=== PATIENT | female | born 1945 | race Caucasian/White ===

== ENCOUNTER → 2016-09-27 | Outpatient (CLI) | payer MEDICARE ==
[~2016-09-27] MED LIST: 'XANAX0.25 MG PO; ACCUNEB 0.1.25 MG/3 INH; BENICAR HCT 12.1 TAB PO; CRESTOR5 MG PO; DOXYCYCLINE100 MG PO; FLONASE 0.05% 121 EA NAS; PAROXETINE10 MG PO; PREDNISONE10 MG PO; SYNTHROID,LEVO50 MCG PO
[2016-09-27 13:46] LABS: BASO # 0.1 10*3/uL (0.0-0.1); BASO % 0.6 % (0.0-1.0); EOS # 0.3 10*3/uL (0.0-0.4); EOS % 3.3 % (1.0-4.0); HEMATOCRIT 40.3 % (37.0-47.0); HEMOGLOBIN 13.6 g/dl (12.0-16.0); LYMPH # 2.9 10*3/uL (1.3-4.4); LYMPH % 28.3 % (27.0-41.0); MEAN CELL VOLUME 93.7 fl (81.0-99.0); MEAN CORPUSCULAR HGB 31.6 pg (27.0-31.0); MEAN CORPUSCULAR HGB CONC 33.7 g/dl (33.0-37.0); MEAN PLATELET VOLUME 10.2 fl (9.6-12.3); MONO # 0.9 10*3/uL (0.1-1.0); MONO % 8.8 % (3.0-9.0); NEUT % 58.6 % (47.0-73.0); PLATELET COUNT AUTOMATED 218 10*3/uL (130-400); RED CELL DISTRI WIDTH 12.8 % (0-14.5); WHITE BLOOD COUNT 10.2 10*3/uL (4.8-10.8)
== END ==
LOC: LAB 13:30
PROVIDERS: Nurse Practitioner Family
DX: J18.9 Pneumonia, unspecified organism (principal)

== ENCOUNTER → 2016-10-16 | Outpatient (CLI) | payer MEDICARE | END | disposition home or self-care (01) | LOC: CT 14:32 | DX: R05 Cough (principal); R06.89 Other abnormalities of breathing; Z85.89 Personal history of malignant neoplasm of other organs and systems ==

== ENCOUNTER → 2018-04-22 | Outpatient (CLI) | payer MEDICARE ==
[~2018-04-22] MED LIST changes: +KETOROLAC10 MG PO
== END | disposition home or self-care (01) ==
LOC: RAD 10:54
DX: H92.02 Otalgia, left ear (principal); R68.84 Jaw pain

== ENCOUNTER 2018-05-08 11:10 | Emergency (ER) | payer MEDICARE ==
[~2018-05-08] VITALS: Ht 162.5 cm; Wt 76.7 kg
--- NOTE | ~2018-05-08 | EKG ---
[place], [place] ELECTROCARDIOGRAM REPORT NAME: UZIEL VEGA UNIT #: [id number] ROOM: DOCTOR: EPIPHANY DRAFT REPORT BIRTHDATE: [birth year] [facility] Test Date: 2018-05-08 Test Time: 11:48:59 Pat Name: UZIEL VEGA Department: Room: Gender: F Auxiliary Engineer: 16 : 1945 Requested By: LISBETH RONDON PA-C Order Number: [id number] Reading MD: Modesto Barboza MD Measurements Intervals [place] Rate: 44 P: 35 TX: 183 QRS: 17 QRSD: 93 T: 39 QT: 429 QTc: 367 Interpretive Statements Sinus bradycardia Borderline low voltage, extremity leads Electronically Signed On 05-09-2018 13:08:19 PST by Modesto Barboza MD CM:EKGRPT:ELECTROCARDIOGRAM REPORT [id number] 1308 LISBETH RONDON PA-C EPIPHANY DRAFT REPORT LISBETH RONDON PA-C
[~2018-05-08 11:10] MED LIST changes: -KETOROLAC10 MG PO
[2018-05-08 12:02] LABS: BASO % 0.7 % (0.0-1.0); EOS # 0.2 10*3/uL (0.0-0.4); EOS % 4.2 % (1.0-4.0); HEMATOCRIT 37.8 % (37.0-47.0); HEMOGLOBIN 12.9 g/dl (12.0-16.0); LYMPH # 2.5 10*3/uL (1.3-4.4); LYMPH % 45.9 % (27.0-41.0); MEAN CELL VOLUME 97.4 fl (81.0-99.0); MEAN CORPUSCULAR HGB 33.2 pg (27.0-31.0); MEAN CORPUSCULAR HGB CONC 34.1 g/dl (33.0-37.0); MEAN PLATELET VOLUME 10.2 fl (9.6-12.3); MONO # 0.8 10*3/uL (0.1-1.0); MONO % 13.8 % (3.0-9.0); NEUT # 1.9 10*3/uL (2.3-7.9); NEUT % 35.2 % (47.0-73.0); PLATELET COUNT AUTOMATED 191 10*3/uL (130-400); RED BLOOD COUNT 3.88 10*6/uL (4.10-5.10); RED CELL DISTRI WIDTH 12.2 % (0-14.5); WHITE BLOOD COUNT 5.4 10*3/uL (4.8-10.8)
[2018-05-08 12:19] LABS: ALBUMIN 3.9 gm/dl (3.1-4.5); ALKALINE PHOSPHATASE 64 U/L (45-117); BUN 23 mg/dl (7-24); CHLORIDE 103 mmol/L (98-107); CREATININE 0.94 mg/dL (0.55-1.02); POTASSIUM 4.8 mmol/L (3.5-5.1); SGOT/AST 19 IU/L (3-35); SGPT/ALT 26 U/L (12-78); SODIUM 138 mmol/L (136-145); TOTAL PROTEIN 6.9 gm/dL (6.4-8.2); TROPONIN I < 0.015 ng/ml (<0.045)
[2018-05-08] MEDS ORDERED: KETOROLAC10 MG PO (15:04)
== END 2018-05-08 14:58 | disposition home or self-care (01) ==
LOC: ED 11:10
PROVIDERS: Physician Assistant
DX: R51 Headache (principal); H53.8 Other visual disturbances; R79.1 Abnormal coagulation profile; Z88.0 Allergy status to penicillin; Z91.018 Allergy to other foods; Z88.6 Allergy status to analgesic agent

== ENCOUNTER → 2018-05-25 | Outpatient (CLI) | payer MEDICARE ==
[~2018-05-25] MED LIST changes: +KETOROLAC10 MG PO
--- NOTE | ~2018-05-25 | HM ---
[place], [place] HOLTER MONITOR REPORT NAME: UZIEL VEGA UNIT #: [id number] ROOM: DOCTOR: JACQUELYN RAMSEY MD BIRTHDATE: [birth year] DOS: 05/25/2018 48-HOUR HOLTER MONITOR The patient remained in sinus rhythm throughout the entire period. Minimum heart rate is 42, maximum is 112, average of 61 beats per minute. The patient remained in sinus rhythm throughout the entire period. No significant ventricular or supraventricular dysrhythmia except for isolated premature ventricular contraction. The patient had an episode of sinus tachycardia. No other ventricular dysrhythmia. No supraventricular dysrhythmia. FINAL IMPRESSION: Sinus rhythm with few episodes of sinus tachycardia, isolated premature ventricular contractions. No ventricular or supraventricular arrhythmia. No significant pauses. JACQUELYN RAMSEY MD CM:HOLTER:HOLTER MONITOR REPORT 1030 T: IVAN RAMSEY MD
== END ==
LOC: US 10:07
DX: I65.23 Occlusion and stenosis of bilateral carotid arteries (principal); I10 Essential (primary) hypertension; E78.2 Mixed hyperlipidemia; R51 Headache; R00.1 Bradycardia, unspecified

== ENCOUNTER 2018-08-13 11:16 | Inpatient (IN) | payer MEDICARE ==
[~2018-08-13] VITALS: Ht 162.5 cm; Wt 77.3 kg
--- NOTE | ~2018-08-13 | PR ---
[place], [place] PROGRESS NOTE NAME: UZIEL VEGA UNIT #: [id number] ROOM: 522 DOCTOR: RADHA SAMAYOA MD BIRTHDATE: [birth year] DOS: 08/18/2018 PULMONARY PROGRESS NOTE SUBJECTIVE: The patient's bronchoscopy was done yesterday. The patient is with decrease and reduction in symptoms of coughing and wheezing reported. Cough has been noted at this time mild to moderate and productive. There were symptoms of wheezing reported. There were no symptoms of chest pain reported by the patient. OBJECTIVE: VITAL SIGNS: Which have been recorded showed normal temperature, respiratory rate 20, heart rate 64, blood pressure 115/68. Pulse ox saturation on room air was 95% saturation. HEENT: No acute change. CARDIOVASCULAR: S1 and S2 audible. LUNGS: The patient was noted without any crackles. Occasional wheezing was present. ABDOMEN: Soft, nontender. Bowel sounds present. EXTREMITIES: No acute change. LABORATORY DATA: Culture of the bronchial washing preliminary was noted as normal tobias. IMPRESSION: 1. The patient is status post bronchoscopy with removal of significant mucous impaction from major airway with improvement in the respiratory symptoms noted as expected post-bronchoscopy. 2. Resolving acute asthmatic bronchitis. PLAN OF MANAGEMENT: Discharge planning for the patient could be started whenever is necessary. Decrease Solu-Medrol to 40 mg daily. Tapering dose of antibiotic will be ordered post-discharge. The patient does not wish to be discharged today and would like to wait another 24 hours prior to discharge in the morning. The assessment and management of discharge planning was discussed with the primary care attending of this patient for today. [place], [place] PROGRESS NOTE NAME: UZIEL VEGA UNIT #: [id number] ROOM: 522 DOCTOR: RADHA SAMAYOA MD BIRTHDATE: [birth year] RADHA WEBER MD CM:PNTRANS [id number] [id number] RADHA DOWNEY MD 08/18/18 2244 interface
--- NOTE | ~2018-08-13 | PR ---
[place], [place] PROGRESS NOTE NAME: UZIEL VEGA UNIT #: [id number] ROOM: 522 DOCTOR: TIA DOWNEY MD,RADHA BIRTHDATE: [birth year] DOS: 08/16/2018 SUBJECTIVE: The patient continued to have cough, which has been noted nonresolving. She denies symptoms of fever or chills. Denies symptoms of hemoptysis. Denies symptoms of nausea, vomiting, diarrhea or any abdominal pain. PHYSICAL EXAMINATION: VITAL SIGNS: Normal temperature, respiratory rate 18, heart rate of 70, blood pressure 140/52. The pulse oxygen saturation the recorded as 94% saturation on room air at rest. HEENT: Showed no acute change. CARDIOVASCULAR: S1, S2 audible. No added sounds. LUNGS: Moderate decreased breath sounds, expiratory wheezing, no crackles. ABDOMEN: Soft, nontender, bowel sounds present. EXTREMITIES: No new change. LABORATORY DATA: The patient's CBC, WBC count of 16,000. The CMP of the patient with normal BUN and creatinine. Glucose 143. Culture of the sputum was pending. The Gram stain was pending as well from yesterday. IMPRESSION: The patient who has been currently treated for acute asthmatic bronchitis with persistent cough, impaction of the mucus. The symptoms has been ongoing and present for several weeks and not resolving. PLAN OF MANAGEMENT: Proceed with the fibrobronchoscopy for tomorrow to clear the mucus impaction of major airways. Continue the other therapy with corticosteroids, bronchodilators, oxygen supplementation, mucolytics and a flutter valve in the meantime. RADHA WEBER MD CM:PNTRANS 1234 [id number] RADHA DOWNEY MD 08/16/18 1449 interface
--- NOTE | ~2018-08-13 | EKG ---
[place], [place] ELECTROCARDIOGRAM REPORT NAME: UZIEL VEGA UNIT #: [id number] ROOM: 522 DOCTOR: YARA DRAFT REPORT BIRTHDATE: [birth year] [facility] Test Date: 2018-08-16 Test Time: 14:35:39 Pat Name: UZIEL VEGA Department: Room: 522 1 Gender: F Sports Editor: 16 : 1945 Requested By: RADHA DOWNEY Order Number: [id number] Reading MD: Radha Mar MD Measurements Intervals [place] Rate: 57 P: 47 [place]: 154 QRS: 7 QRSD: 92 T: 40 QT: 417 QTc: 406 Interpretive Statements Sinus rhythm Compared to ECG 05/08/2018 11:48:59 Sinus bradycardia no longer present Electronically Signed On 08-17-2018 6:18:39 PST by Radha Mar MD CM:EKGRPT:ELECTROCARDIOGRAM REPORT 1435 0618 RADHA LIVINGSTON DRAFT REPORT RADHA DOWNEY MD
--- NOTE | ~2018-08-13 | PROC NOTE ---
[place], [place] PROCEDURE NOTE NAME: UZIEL VEGA UNIT #: [id number] ROOM: 522 DOCTOR: TIA DOWNEY MD,RADHA BIRTHDATE: [birth year] DOS: 08/17/2018 PREOPERATIVE DIAGNOSES: Nonresolving cough with maximum medical therapy with asthmatic bronchitis, acute exacerbation. POSTOPERATIVE DIAGNOSES: Removal of the mucus impaction endobronchial tree bilaterally, which are noted moderate to large with evidence of acute tracheobronchitis, friable mucosa. There were no endobronchial obstructive lesions. PROCEDURE DESCRIPTION: Informed consent obtained with the patient. She was brought to the OR and placed in supine position. Conscious sedation administered by Anesthesia Department. After that, airway introduced into the mouth. Bronchoscope advanced to the airway into laryngeal area. Epiglottis and vocal cord seen. Vocal moved symmetrically with movements. The bronchoscope has advanced through the vocal cord. Tracheal lumen noted with moderate amount of thick mucoid secretion tracking down to the anahy level. Large plugs of the mucus was present in the right upper, right middle, right lower, left upper, lingular lower lobe bronchi. Significant friability of the mucosa of the trachea and the endobronchial tree was noted. Secretions suctioned clear with normal saline wash, sent for cultures. Procedure was tolerated without complications. Postoperative findings were discussed with the patient's family members. The dose of steroids will be decreased to 40 mg Solu-Medrol b.i.d. RADHA WEBER MD CM:PROCNOTE:PROCEDURE NOTE 0931 1510 RADHA DOWNEY MD
--- NOTE | ~2018-08-13 | PR ---
[place], [place] PROGRESS NOTE NAME: UZIEL VEGA UNIT #: [id number] ROOM: 522 DOCTOR: TIA DOWNEY MD,RADHA BIRTHDATE: [birth year] DOS: 08/19/2018 SUBJECTIVE: The patient continued to do well with current medical management. The respiratory symptoms have been resolving. She has been ambulating. Denies symptoms of chest pain, fever or chills or hemoptysis. OBJECTIVE: VITAL SIGNS: Normal temperature, respiratory rate 17, heart rate 58, blood pressure 148/80. Pulse oxygen saturation recorded room air 98% saturation. HEENT: Examination shows head was atraumatic. Eyes nonicterus. NECK: Supple. CARDIOVASCULAR: S1, S2 is audible. LUNGS: The patient was noted without any wheezing or crackles. ABDOMEN: Soft, nontender. Bowel sounds present. EXTREMITIES: The patient noted without any acute edema. LABORATORY DATA: Culture of the bronchial washing noted as a normal tobias. IMPRESSION: The patient with resolving exacerbation of asthmatic bronchitis, cough, improved markedly at this time, the patient was noted asymptomatic. PLAN OF MANAGEMENT: Discharge planning for the patient today with tapering prednisone and oral antibiotics. Other supportive therapy, plan of management, care plan as previously. RADHA WEBER MD CM:PNTRANS 1202 1310 RADHA DOWNEY MD 08/19/18 1311 interface
--- NOTE | ~2018-08-13 | PR ---
[place], [place] PROGRESS NOTE NAME: UZIEL VEGA UNIT #: [id number] ROOM: 522 DOCTOR: RADHA SAMAYOA MD BIRTHDATE: [birth year] DOS: 08/17/2018 SUBJECTIVE: The patient is n.p.o. past midnight for bronchoscopy, continuous with severe nonproductive cough with wheezing and shortness of breath. Denies symptoms of fever or chills. Denies symptoms of hemoptysis. The patient denies headache, diplopia, nausea, vomiting, or diarrhea. Remaining systems were reviewed. They were noted all negative. PHYSICAL EXAMINATION: VITAL SIGNS: Normal temperature, respiratory rate 16, heart rate 72, blood pressure 122/72. Pulse oxygen saturation recorded as 94% at rest on room air. HEENT: No acute change. NECK: Supple. CARDIOVASCULAR: S1, S2 audible. LUNGS: Noted with moderate decreased breath sounds, expiratory wheezing, no crackles. ABDOMEN: Soft, flat, nontender, bowel sounds present. EXTREMITIES: Without edema. MUSCULOSKELETAL: Without acute deformities. CENTRAL NERVOUS SYSTEM: Cranial nerves 2-12 intact. LABORATORY DATA: Culture of the sputum noted normal tobias from 2 days ago. CBC this morning; WBC count 15.5, hemoglobin and hematocrit normal, platelet count normal. PT/PTT normal. CMP of the patient this morning, normal BUN and creatinine, glucose mildly elevated at 162. IMPRESSION: 1. The patient with ongoing acute asthmatic bronchitis. The patient persistent nonresolving symptoms of cough with wheezing. Continue maximum medical management therapy. 2. Leukocytosis secondary to current infection and steroids. 3. Mild hyperglycemia secondary to corticosteroids. PLAN OF MANAGEMENT: No changes in the plan of care at this time. Proceed with the fiberoptic bronchoscopy. Continue corticosteroids, bronchodilator therapy, plan of management. After the bronchoscopy changes in the treatment will be ordered. Management of hyperglycemia and if her blood glucose noted more than 200. [place], [place] PROGRESS NOTE NAME: UZIEL VEGA UNIT #: [id number] ROOM: 522 DOCTOR: RADHA SAMAYOA MD BIRTHDATE: [birth year] RADHA WEBER MD CM:PNTRANS 0929 21 RADHA DOWNEY MD 08/17/18 162 interface
--- NOTE | ~2018-08-13 | CON ---
[place], [place] REPORT OF CONSULTATION NAME: UZIEL VEGA UNIT #: [id number] ROOM: 522 DOCTOR: RADHA SAMAYOA MD BIRTHDATE: [birth year] DOS: 08/15/2018 PULMONARY CONSULTATION, EVALUATION AND MANAGEMENT CONSULTATION REQUESTED BY: Hospitalist service. REASON FOR CONSULTATION: For assessment of the current abnormal respiratory symptoms. HISTORY OF PRESENT ILLNESS: This is a 72-year-old white female patient who has been hospitalized from 08/13/2018. She presented to the Emergency Room with failed outpatient treatment. The patient reported acute respiratory symptom and stated that she has been diagnosed with influenza pneumonia by the primary care physician. She has been prescribed the prednisone, bronchodilators, and the Tamiflu. She has been taking the medication for the first couple of days. Stated reduction of the respiratory symptom, but after that she has been noted worsening of the respiratory symptom. She was seen by the primary care physician on this and was advised for hospitalization. She has been admitted to the hospital for further care at this time. She still noted significant harsh nonproductive cough. Chest congestion noted as well with wheezing. Denies symptoms of hemoptysis. Denies any chest pain at this time. REVIEW OF SYSTEMS: CONSTITUTIONAL SYMPTOMS: Fatigue and tiredness reported without any symptoms of fever or chills. EYES: Denies any burning, redness, or tenderness. EARS, NOSE, THROAT SYMPTOMS: Denies sore throat, hoarseness, otalgia, postnasal drainage, or epistaxis. CARDIOVASCULAR: Denies angina pain, edema, and pain of the lower extremities. GASTROINTESTINAL: Dysphagia, nausea, vomiting, diarrhea, abdominal pain, hematemesis, melena, or hematochezia. GENITOURINARY: No dysuria, suprapubic pain, or hematuria. MUSCULOSKELETAL: No acute joint pain, redness, or tenderness. CENTRAL NERVOUS SYSTEM: No dizziness, headache, diplopia, syncopal episode with general weakness reported with current illness. Remaining systems were reviewed, they were noted all negative. PAST MEDICAL HISTORY: 1. Essential hypertension. 2. Hypothyroidism. 3. Hyperlipidemia. 4. Anxiety disorder. 5. Hypothyroidism. 6. The patient with asthmatic bronchitis, treated in 2014, did require therapy of bronchoscopy at this time to resolve the nonresolving and persistent cough. SOCIAL HISTORY: The patient is . She does not have any children. Denies history of alcohol use, illicit drug use, and was noted nonsmoker lifetime. [place], [place] REPORT OF CONSULTATION NAME: UZIEL VEGA UNIT #: [id number] ROOM: 522 DOCTOR: RADHA SAMAYOA MD BIRTHDATE: [birth year] PAST SURGICAL HISTORY: 1. Cardiac catheterization. 2. Hysterectomy. 3. Left breast biopsy, which was reported as benign. 4. Therapeutic bronchoscopy in 2014. FAMILY HISTORY: The patient's father at 65 years due to complication of acute stroke. Mother at 58 years of complication related to acute myelocytic leukemia. CURRENT MEDICATIONS: Administered on this hospitalization. Solu-Medrol 60 mg every 8 hours, Mucinex 12 mg b.i.d., losartan/hydrochlorothiazide, metoprolol tartrate, Lovenox, levothyroxine, Lipitor, aspirin, Paxil, DuoNeb q.4 hours and other p.r.n. medications. Antibiotics machado, the patient has been received Zithromax and Rocephin daily. DRUG ALLERGIES: The patient was noted as allergy: 1. PENICILLIN. 2. CODEINE. PHYSICAL EXAMINATION: GENERAL: A 72-year-old female who has been noted currently awake and alert without any acute distress. Height of 5 feet 4 inches, weight 270 pounds, BMI 29 noted with nonproductive cough intermittently during the assessment. VITAL SIGNS: The patient is a normal temperature, respiratory rate of 18-20, heart rate 65-62, blood pressure is 174/76-125/54. The pulse oxygen saturation on room air at rest was 94% saturation. HEENT: Shows head was atraumatic. Eyes, nonicterus. NECK: Supple. CARDIOVASCULAR: S1, S2 is audible. LUNGS: Without any crackles or rhonchi. Expiratory wheezing were noted in the upper portion of the lungs. ABDOMEN: Soft, nontender. Bowel sounds present. EXTREMITIES: No acute edema. MUSCULOSKELETAL: Without acute deformities. CENTRAL NERVOUS SYSTEM: Cranial nerves 2-12 intact. LABORATORY DATA: The culture of the throat were noted negative on 08/13/2018. CBC was noted as eosinophilia noted 3.1% with WBC count of 10.5. PT/PTT were noted as normal. The CMP of patient on 08/13/2018 normal BUN and creatinine. CBC of 08/14/2018 essentially noted as normal WBC count. CMP of the patient noted as normal for the patient on 08/14/2018. The CBC this morning, WBC count 16.6, hemoglobin 12.5 and hematocrit 36.9, platelet count was normal. BMP that was done this morning was noted normal BUN and creatinine. Chest x-ray that was completed, 2-view on 08/13/2018 was reviewed and does not show any evidence of acute pulmonary infiltration, other abnormalities, hyperinflation of lungs were noted. IMPRESSION: 1. The patient will be admitted to the hospital with acute bronchial asthma [place], [place] REPORT OF CONSULTATION NAME: UZIEL VEGA UNIT #: [id number] ROOM: 522 DOCTOR: TIA DOWNEY MD,RADHA BIRTHDATE: [birth year] exacerbation and acute bronchitis with eosinophilia. 2. The patient with history of essential hypertension as well. 3. Anxiety disorder and hyperlipidemia. PLAN OF MANAGEMENT: At this time, the patient does not have any evidence of pneumonia. Continuation of current noninvasive treatment with the medications use as well as flutter valve to help improve the secretion clear the airways. Most likely impacted mucus secretion would be noted because of persistent cough, wheezing, and no improvement with current high dose steroids. Leukocytosis secondary to corticosteroid was also observed. The conservative treatment consider doing therapeutic bronchoscopy as a final intervention. Continuation of the bronchodilators and therapy, plan and management, care plan, treatment and all other therapy as planned. RADHA WEBER MD CM:CONSTR:REPORT OF CONSULTATION 1316 08/25/18 0817 interface
[2018-08-13 11:30] VITALS: BP 174/76
--- NOTE | 2018-08-13 11:30 | NUR ---
A 72, admitted to , under the services of ARVIN Angeles DO with a diagnosis of FAILED OUTPT TX,DYSPNEA,AND INFLUENZA B+. Chief complaint is SHORTNESS OF BREATH. Patient arrived via wheel chair from ADMISSIONS. Monitor applied. Initial assessment completed. Vital signs taken and recorded. ARVIN ANGELES DO notified of admission to the unit. Orders received. See assessment for past medical history, medications and allergies. Patient and/or family oriented to unit. [facility] visitation policy reviewed. Clothing/patient valuable form completed. CARL LY
[2018-08-13 12:00] VITALS: BP 174/76
[2018-08-13] MEDS ORDERED: TAMIFLU 75MG CA75 MG PO (12:04)
[2018-08-13] MEDS ORDERED: OMEPRAZOLE40 MG PO (12:04)
[2018-08-13] MEDS ORDERED: METOPROLOL SUCC25 M2 PO (12:05)
[2018-08-13] MEDS ORDERED: LEVOTHYROXINE75 MCG PO (12:05)
[2018-08-13 12:25] LABS: BASO # 0.1 10*3/uL (0.0-0.1); BASO % 0.6 % (0.0-1.0); EOS # 0.3 10*3/uL (0.0-0.4); EOS % 3.1 % (1.0-4.0); HEMATOCRIT 42.2 % (37.0-47.0); HEMOGLOBIN 14.1 g/dl (12.0-16.0); LYMPH # 4.2 10*3/uL (1.3-4.4); LYMPH % 39.9 % (27.0-41.0); MEAN CELL VOLUME 98.4 fl (81.0-99.0); MEAN CORPUSCULAR HGB 32.9 pg (27.0-31.0); MEAN CORPUSCULAR HGB CONC 33.4 g/dl (33.0-37.0); MEAN PLATELET VOLUME 9.8 fl (9.6-12.3); MONO # 0.7 10*3/uL (0.1-1.0); MONO % 6.9 % (3.0-9.0); NEUT # 5.1 10*3/uL (2.3-7.9); NEUT % 48.5 % (47.0-73.0); PLATELET COUNT AUTOMATED 197 10*3/uL (130-400); RED BLOOD COUNT 4.29 10*6/uL (4.10-5.10); RED CELL DISTRI WIDTH 11.9 % (0-14.5); WHITE BLOOD COUNT 10.5 10*3/uL (4.8-10.8)
[2018-08-13 12:36] LABS: ACT PARTIAL THROMBO TIME 22.7 SECONDS (20.8-31.5)
[2018-08-13 12:41] LABS: ALBUMIN 3.8 gm/dl (3.1-4.5); ALKALINE PHOSPHATASE 69 U/L (45-117); BUN 17 mg/dl (7-24); CHLORIDE 99 mmol/L (98-107); PHOSPHOROUS 4.4 mg/dL (2.5-4.9); POTASSIUM 3.9 mmol/L (3.5-5.1); SGOT/AST 17 IU/L (3-35); SGPT/ALT 30 U/L (12-78); SODIUM 136 mmol/L (136-145); TOTAL PROTEIN 7.3 gm/dL (6.4-8.2)
--- NOTE | 2018-08-13 13:17 | NUR ---
NOTIFIED DR CARR OF PT MANUAL BP FROM PREVIOUS. NOTIFIED HIM ALSO OF HOME MEDS RECONCILED.
--- NOTE | 2018-08-13 15:02 | NUR ---
ROBITUSSIN 10 ML GIVEN PER MAR.
[2018-08-13 15:51] VITALS: BP 132/38
[2018-08-13 17:04] LABS: BILIRUBIN NEGATIVE (NEGATIVE); BLOOD NEGATIVE (NEGATIVE); CLARITY CLEAR (CLEAR); COLOR YELLOW (YELLOW); GLUCOSE NEGATIVE (NEGATIVE); KETONE NEGATIVE (NEGATIVE); LEUKO ESTERASE TRACE (NEGATIVE); NITRITE NEGATIVE (NEGATIVE); SPECIFIC GRAVITY <= 1.005 (1.005-1.030); UROBILINOGEN 0.2 E.U./dl (0.2-1.0)
[2018-08-13 17:14] LABS: BACTERIA 1+
--- NOTE | 2018-08-13 18:51 | NUR ---
Patient resting quietly with no c/o discomfort. Respirations easy and regular. Vital signs stable. No overt distress. CARL LY
[2018-08-13 20:00] VITALS: BP 144/45
[2018-08-13] MEDS ORDERED: ASPIRIN ADULT L81 M1 PO (20:30)
[2018-08-13] MEDS ORDERED: COLACE100 MG PO (20:31)
[2018-08-14] VITALS: BP 133/55
[2018-08-14 06:17] LABS: BASO % 0.2 % (0.0-1.0); HEMATOCRIT 38.8 % (37.0-47.0); HEMOGLOBIN 12.9 g/dl (12.0-16.0); MEAN CORPUSCULAR HGB 32.6 pg (27.0-31.0); MEAN CORPUSCULAR HGB CONC 33.2 g/dl (33.0-37.0); MEAN PLATELET VOLUME 9.8 fl (9.6-12.3); MONO # 0.6 10*3/uL (0.1-1.0); MONO % 5.6 % (3.0-9.0); NEUT # 7.8 10*3/uL (2.3-7.9); NEUT % 73.1 % (47.0-73.0); PLATELET COUNT AUTOMATED 207 10*3/uL (130-400); RED BLOOD COUNT 3.96 10*6/uL (4.10-5.10); RED CELL DISTRI WIDTH 11.7 % (0-14.5); WHITE BLOOD COUNT 10.7 10*3/uL (4.8-10.8)
[2018-08-14 06:32] LABS: ALBUMIN 3.3 gm/dl (3.1-4.5); ALKALINE PHOSPHATASE 66 U/L (45-117); BUN 17 mg/dl (7-24); CHLORIDE 103 mmol/L (98-107); CHOLESTEROL 164 mg/dL (<200); FREE T4 1.22 ng/dl (0.76-1.46); HDL CHOLESTEROL 52 mg/dl (40-60); LDL CHOLESTEROL 96 mg/dL (9-159); POTASSIUM 4.4 mmol/L (3.5-5.1); SGOT/AST 14 IU/L (3-35); SGPT/ALT 28 U/L (12-78); SODIUM 136 mmol/L (136-145); TOTAL PROTEIN 6.9 gm/dL (6.4-8.2); TRIGLYCERIDES 78 mg/dl (<150); VLDL CHOLESTEROL 16 mg/dL (6-40)
[2018-08-14 06:37] LABS: CREATININE 0.82 mg/dL (0.55-1.02); PHOSPHOROUS 3.9 mg/dL (2.5-4.9); THYROID STIM HORMONE (HS) 0.357 uIU/ml (0.358-4.75)
[2018-08-14 07:08] LABS: VITAMIN D, 25-HYDROXY 36.8 ng/mL (30-100)
--- NOTE | 2018-08-14 07:50 | NUR ---
VS ARE STABLE, A&O X3, SHELLY, HEART SOUNDS ARE NORMAL, LUNGS RHONCHI/RALE/WHEEZES THROUGHOUT SOB ON EXERTION, MOIST COUGH WITH YELLOW/GREEN SECRETIONS, ABD SOFT NONTENDER NONDISTENDED, BS X4, SKIN PINK WARM DRY AND INTACT, POSITIVE PEDAL PULSES, NO EDEMA NOTED, PT STATED "I HAVE NO PAIN THIS MORNING, BUT I FEEL TERRIBLE" WILL CONTINUE TO ASSESS. DWAIN BLOODN
[2018-08-14 08:00] VITALS: BP 130/68
--- NOTE | 2018-08-14 09:45 | NUR ---
PHYSICAL THERAPY PAtient evaluated on 5, full evaluation to follow. Continue with PT as per plan of care with fall, flu B and acute debility precautions. Home ith home health RN PRN. PAtient is moderate complexity via chart review, tests and evaluation: 56825. Thank you for this referral. Bettye Hernandez,PT
--- NOTE | 2018-08-14 10:30 | NUR ---
Occupational Therapy evaluation completed on 5 with full eval to follow. Precautions include fatigue,SOB w/ mod exertion, IV UE. Patient is low complexity level 34107 via chart review, testing and evaluation. Recommend no further OT and d/c to home alone at discharge. Patient in agreement with this plan. Thank you. Debby Shah OTR/L
[2018-08-14 12:45] VITALS: BP 128/60
--- NOTE | 2018-08-14 13:05 | NUR ---
[employer] in to talk to patient. Patient states lives at HOME with ALONE. There are 13 steps in the home. Physician: ULISES Pharmacy: [facility] Home health services: NONE Patient's level of ADLs: INDEPENDENT Patient has working utilities: YES DME: NONE Follow-up physician's appointment after d/c: WILL BE MADE BY HOSPITALIST NURSE DIRECTOR ON DISCHARGE. Does patient want to access PORTAL?: NO Discharge plan PT STATES SHE LIVES AT HOME ALONE AND IS INDEPENDENT IN CARE. STATES SHE WILL HAVE NO NEEDS ON DISCHARGE. STATES SHE WILL HAVE A RIDE ON DISCHARGE. WILL CONTINUE TO FOLLOW.. SOPHIA ELI
[2018-08-14 16:00] VITALS: BP 134/49
--- NOTE | 2018-08-14 19:00 | NUR ---
PT AWAKE AND SITTING ON THE EDGE OF THE BED. SHE STATES SHE IS FEELING MUCH BETTER THAN YESTERDAY. CALL LIGHT IS WITHIN REACH, WILL CONTINUE TO MONITOR.
--- NOTE | 2018-08-14 19:35 | NUR ---
24 HR CHART CHECK COMPLETE
[2018-08-14 20:00] VITALS: BP 125/54
[2018-08-15] VITALS: BP 148/55
[2018-08-15 06:41] LABS: HEMATOCRIT 36.9 % (37.0-47.0); HEMOGLOBIN 12.5 g/dl (12.0-16.0); MEAN CELL VOLUME 96.9 fl (81.0-99.0); MEAN CORPUSCULAR HGB 32.8 pg (27.0-31.0); MEAN CORPUSCULAR HGB CONC 33.9 g/dl (33.0-37.0); PLATELET COUNT AUTOMATED 244 10*3/uL (130-400); RED BLOOD COUNT 3.81 10*6/uL (4.10-5.10); RED CELL DISTRI WIDTH 11.9 % (0-14.5); WHITE BLOOD COUNT 16.6 10*3/uL (4.8-10.8)
[2018-08-15 06:59] LABS: BUN 20 mg/dl (7-24); CHLORIDE 104 mmol/L (98-107); POTASSIUM 4.2 mmol/L (3.5-5.1); SODIUM 138 mmol/L (136-145)
[2018-08-15 07:02] LABS: CREATININE 0.71 mg/dL (0.55-1.02)
[2018-08-15 07:43] LABS: PLATELET SUFFICIENCY NORMAL (NORMAL); TOTAL CELLS COUNTED 100 #CELLS
[2018-08-15 08:00] VITALS: BP 142/55
[2018-08-15 12:00] VITALS: BP 150/53
[2018-08-15 16:00] VITALS: BP 147/56
[2018-08-15 20:00] VITALS: BP 137/79
[2018-08-16] VITALS: BP 147/62
--- NOTE | 2018-08-16 05:50 | NUR ---
AM MEDS TAKEN WITH EASE. RESPIRATIONS EASY AND UNLABORED AT THIS TIME. PT HAS HARSH COUGH NOTED ON ASSESSMENT. CALL LIGHT IN REACH.
--- NOTE | 2018-08-16 05:51 | NUR ---
24 HR chart check completed.
[2018-08-16 06:14] LABS: HEMATOCRIT 37.7 % (37.0-47.0); HEMOGLOBIN 12.6 g/dl (12.0-16.0); MEAN CELL VOLUME 97.7 fl (81.0-99.0); MEAN CORPUSCULAR HGB 32.6 pg (27.0-31.0); MEAN CORPUSCULAR HGB CONC 33.4 g/dl (33.0-37.0); MEAN PLATELET VOLUME 9.9 fl (9.6-12.3); PLATELET COUNT AUTOMATED 233 10*3/uL (130-400); RED BLOOD COUNT 3.86 10*6/uL (4.10-5.10); WHITE BLOOD COUNT 16.1 10*3/uL (4.8-10.8)
[2018-08-16 06:30] LABS: CHLORIDE 103 mmol/L (98-107); SODIUM 137 mmol/L (136-145)
[2018-08-16 06:43] LABS: ALBUMIN 3.4 gm/dl (3.1-4.5); ALKALINE PHOSPHATASE 67 U/L (45-117); BUN 20 mg/dl (7-24); CREATININE 0.72 mg/dL (0.55-1.02); SGOT/AST 14 IU/L (3-35); SGPT/ALT 27 U/L (12-78); TOTAL PROTEIN 6.7 gm/dL (6.4-8.2)
[2018-08-16 07:14] LABS: PLATELET SUFFICIENCY NORMAL (NORMAL); TOTAL CELLS COUNTED 100 #CELLS
[2018-08-16 08:00] VITALS: BP 142/52
--- NOTE | 2018-08-16 10:02 | NUR ---
PRN NORCO WAS EFFECTIVE FOR RIB PAIN NOW RATED 2/10. CALL LIGHT IN REACH. IVF GOING.
--- NOTE | 2018-08-16 10:33 | NUR ---
TYLENOL GIVEN FOR HEADACHE. WILL MONITOR. CALL LIGHT IN REACH.
--- NOTE | 2018-08-16 11:12 | NUR ---
SLEEPING, TYLENOL SEEMS TO BE EFFECTIVE. NO SXS OF DISTRESS. CALL LIGHT IN REACH.
--- NOTE | 2018-08-16 11:50 | NUR ---
C/O ADDISON AT THIS TIME. PRN TYLENOL GIVEN. CALL LIGHT IN REACH. IVF GOING.
[2018-08-16 12:00] VITALS: BP 148/55
--- NOTE | 2018-08-16 12:42 | NUR ---
PER PT, ATIVAN AND TYLENOL WERE EFFECTIVE. CALL LIGHT IN REACH IVF GOING WITH EASE.
--- NOTE | 2018-08-16 15:30 | NUR ---
PRN NORCO AND TYLENOL GIVEN FOR C/O RIB PAIN AND HEADACHE. WILL MONITOR. CALL LIGHT IN REACH. FAMILY AT BEDSIDE. IVF GOING.
[2018-08-16 16:00] VITALS: BP 148/57
--- NOTE | 2018-08-16 16:26 | NUR ---
NORCO AND TYLENOL EFFECTIVE PER PT. CALL LIGHT IN REACH. NO FURTHER COMPLAINTS.
[2018-08-17] VITALS (10 sets, daily range): BP systolic 112–160; BP diastolic 48–87
[2018-08-17 06:10] LABS: HEMATOCRIT 38.1 % (37.0-47.0); HEMOGLOBIN 12.8 g/dl (12.0-16.0); MEAN CELL VOLUME 98.2 fl (81.0-99.0); MEAN CORPUSCULAR HGB CONC 33.6 g/dl (33.0-37.0); MEAN PLATELET VOLUME 9.9 fl (9.6-12.3); PLATELET COUNT AUTOMATED 241 10*3/uL (130-400); RED BLOOD COUNT 3.88 10*6/uL (4.10-5.10); WHITE BLOOD COUNT 15.5 10*3/uL (4.8-10.8)
[2018-08-17 06:29] LABS: ACT PARTIAL THROMBO TIME 19.9 SECONDS (20.8-31.5); INTERNATIONAL NORM RATIO 1.1 (2.0-3.5)
[2018-08-17 06:32] LABS: ALBUMIN 3.4 gm/dl (3.1-4.5); ALKALINE PHOSPHATASE 69 U/L (45-117); BUN 21 mg/dl (7-24); CHLORIDE 103 mmol/L (98-107); CREATININE 0.84 mg/dL (0.55-1.02); PHOSPHOROUS 3.9 mg/dL (2.5-4.9); POTASSIUM 4.1 mmol/L (3.5-5.1); SGOT/AST 15 IU/L (3-35); SGPT/ALT 31 U/L (12-78); SODIUM 139 mmol/L (136-145); TOTAL PROTEIN 6.8 gm/dL (6.4-8.2)
[2018-08-17 06:51] LABS: TOTAL CELLS COUNTED 100 #CELLS
[2018-08-17 06:52] LABS: PLATELET SUFFICIENCY NORMAL (NORMAL)
--- NOTE | 2018-08-17 07:10 | NUR ---
FAMILY IN TO VISIT PT PLEASANT AND SMILING WILL CONTINUE TO ASSESS. VILLA ESPINOZA [facility]
--- NOTE | 2018-08-17 07:40 | NUR ---
PT DOWN TO SURGERY WILL AWAIT RETURN. VILLA ESPINOZA [facility]
--- NOTE | 2018-08-17 09:05 | NUR ---
VS-STABLE. A+OX3, SHELLY, EQUAL MANUFACTURING PLANT TECHNICIAN, COOPRATIVE, AND PLEASANT. HEART SOUNDS NORMAL. LUNG SOUNDS CLEAR. BSX4 ABD SOFT, NON TENDER, AND NON DISTENDED. CAP REFILL<3 SECONDS. NON TENTING SKIN TURGOR. POSTIVE PEDAL PULSES. LAST NOTED BM 08/17/18. SKIN WARM, DRY, AND INTACT. VILLA ESPINOZA [facility]
--- NOTE | 2018-08-17 10:30 | NUR ---
PT BACK FROM SURGERY VIA BED CONDITION STABLE WILL CONTINUE TO ASSESS. [facility]
--- NOTE | 2018-08-17 10:30 | NUR ---
VS-STABLE. A+OX3, SHELLY, EQUAL INTEGRATED CIRCUIT LAYOUT DESIGNER, COOPRATIVE AND PLEASANT. HEART SOUNDS NORMAL. ROHNCHI NOTED IN LOWER RIGHT LOBES OTHERWISE CLEAR. BSX4 ABD SOFT, NON TENDER, AND NON DISTENDED. CAP REFILL <3 SECONDS. NON TENTING SKIN TURGOR. SKIN WARM, DRY, AND INTACT. POSTIVE PEDAL PULSES. LAST NOTED BM MORNING OF 08/17/18. C/O ADDISON RATES PAIN 5/10 ON PAIN SCALE. VILLA ESPINOZA SPD[facility]
--- NOTE | 2018-08-17 11:05 | NUR ---
PHYSICAL THERAPY Patient was approached several times this am for therapy visit and was out of room for Bronchoscopy first attempt, then resting in bed with family member present upon second attempt. Patient stated she wanted to rest a bit and requested to be seen this pm around 2 pm if possible. Will continue per POC as tolerated. Gregorio Cervantes, INFORMATION SECURITY DIRECTOR
--- NOTE | 2018-08-17 14:02 | NUR ---
PHYSICAL THERAPY Patient seen this pm 1:1 for therapy visit and was supine in bed upon therapist arrival. Patient was very pleasant this afternoon, stating she still is feeling a little generalized weakness secondary to lingering flu like s/s. Patient transfers supine to sit EOB CGA and sit to stand SBA, ambulating without AD, 50'x 2, CGA, demonstrating very slow sonal. Patient also demonstrates increaed fatigue while needing standing rest break upon second gait trial prior to returning to EOB sit. Patient remained EOB sit with call light, tray table and telephone. Will continue per POC as tolerated to improve safe transfers, gait and standing activities with decreased fatigue. Total treatment time 18 minutes. Gregorio Cervantes, MEDICARE BILLER
--- NOTE | 2018-08-17 19:54 | NUR ---
24 HR chart check completed.
--- NOTE | 2018-08-17 22:00 | NUR ---
RESTING IN BED WATCHING TV, NO DISTRESS NOTED. RESPIRATIONS EASY. LUNGS DIMINISHED WITH FAINT EXP WHEEZES. PULSE OX 98% RA. DRY NON-PRODUCTIVE COUGH NOTED. TRACE BLE EDEMA, TEDS IN PLACE. CALL LIGHT WITHIN REACH. NO VOICED COMPLAINTS
--- NOTE | 2018-08-17 22:13 | NUR ---
REQUESTED AND RECEIVED TYLENOL PER PRN ORDER FOR COMPLAINTS OF HEADACHE RATING A 5. CALL LIGHT WITHIN REACH. WILL MONITOR FOR EFFECTIVENESS
[2018-08-18] VITALS: BP 145/54
--- NOTE | 2018-08-18 | NUR ---
SLEEPING. NO DISTRESS NOTED. RESPIRATIONS EASY. VSS. CALL LIGHT WITHIN REACH
--- NOTE | 2018-08-18 07:00 | NUR ---
SLEPT THROUGHOUT NIGHT WITH NO DISTRESS NOTED. RESPIRATIONS EASY. CALL LIGHT WITHIN REACH. NO VOICED COMPLAINTS THIS SHIFT
[2018-08-18 08:00] VITALS: BP 159/68
--- NOTE | 2018-08-18 10:10 | NUR ---
PHYSICAL THERAPY Patient seen this am 1:1 for therapy visit and was sitting up in bedside chair upon therapist arrival. Patient reports feeling a little better, but still with mild chest congestion. Patient transfers sit to stand SBA and ambulates without AD, 125'x 2, SBA, demonstrating slow sonal with good upright posture. Patient needed seated rest break between gait trials secondary to increased SOB / fatigue. SpO2 during rest break 97%, HR 71 bpm. Patient returned to EOB sit following gait ex and declined stair training due to increased fatigue. Patient remained EOB with call light, tray table and telephone. Will continue per POC as tolerated, total treatment time 17 minutes. Gregorio Cervantes, BEVELER
--- NOTE | 2018-08-18 11:29 | NUR ---
PT CONTINUES TO DENY HOME NEEDS ON DISCHARGE.
[2018-08-18 12:00] VITALS: BP 154/69
[2018-08-18 15:06] LABS: ACID FAST SPEC PROCESSING Concentration (.)
[2018-08-18 16:00] VITALS: BP 141/51
--- NOTE | 2018-08-18 16:10 | NUR ---
PROVIDED MONSERRAT ROMERO PRN FOR COUGH.
[2018-08-18 20:00] VITALS: BP 138/68
[2018-08-19] VITALS: BP 151/66
--- NOTE | 2018-08-19 03:30 | NUR ---
24 HR CHART CHECK COMPLETED.
[2018-08-19 08:00] VITALS: BP 148/80
--- NOTE | 2018-08-19 08:55 | NUR ---
PHYSICAL THERAPY Patient seen this am 1:1 for therapy visit and was sitting EOB upon therapist arrival. Patient reports decreased chest congestion and states she is feeling better everyday. Patient transfers all with Supervision and ambulates SBA, 100'x 2, demonstrating decreased fatigue between gait trials and smoother sonal. Patient returned to EOB sit stating she feels like I'm making progress. Patient remained EOB with call light, tray table and telephone as breakfast arrived. Will continue per POC as tolerated, total treatment time 17 minutes. Gregorio Cervantes, AUTOMOBILE LOCATOR
[2018-08-19] MEDS ORDERED: ZITHROMAX500 MG PO (10:52)
[2018-08-19] MEDS ORDERED: PREDNISONE10 MG PO (10:55)
--- NOTE | 2018-08-19 11:50 | NUR ---
Discharge instructions reviewed with patient. Patient receptive and verbalizes understanding. Follow-up care arranged. Written instructions given to patient. ADMINISTERING IV ZITHROMAX AND ROCEPHIN PRIOR TO DISCHARGE; PATIENT WILL START TAKING HER PO ANTIBIOTICS AND PREDNISONE TOMORROW AT HOME. JAYSON SO
--- NOTE | 2018-08-19 11:51 | NUR ---
PHYSICAL THERAPY CO-SIGN I approve of the Phyical Therapy notes written above. DEVORA BRIGGS PT
[2018-08-19] MEDS ORDERED: ALBUTEROL2.5 MG/0.5 INH (12:17)
--- NOTE | 2018-08-19 13:34 | NUR ---
SCRIP AND PT INFORMATION FAXED TO [email or web address] FOR [facility]BULIZER.
--- NOTE | 2018-08-19 15:57 | NUR ---
PATIENT DISCHARGED TO FRONT LOBBY BY WHEELCHAIR, ACCOMPANIED BY [facility], FOR TRANSPORT HOME BY PRIVATE VEHICLE WITH FAMILY MEMBER.
[2018-09-30 10:06] LABS: ACID FAST CULTURE Negative (.)
== END 2018-08-19 15:57 | disposition home or self-care (01) | DRG 178 ==
LOC: 5E 11:16
PROVIDERS: Internal Medicine; Internal Medicine Critical Care Medicine; Internal Medicine Nephrology; ADMIT Internal Medicine
PROC: 0BC38ZZ Extirpation of Matter from Right Main Bronchus, Via Natural or Artificial Opening Endoscopic (ICD-10-PCS; principal; 2018-08-17)
PROC: 0BC78ZZ Extirpation of Matter from Left Main Bronchus, Via Natural or Artificial Opening Endoscopic (ICD-10-PCS; principal; 2018-08-17)
PROC: 0BCB8ZZ Extirpation of Matter from Left Lower Lobe Bronchus, Via Natural or Artificial Opening Endoscopic (ICD-10-PCS; principal; 2018-08-17)
PROC: 0BC68ZZ Extirpation of Matter from Right Lower Lobe Bronchus, Via Natural or Artificial Opening Endoscopic (ICD-10-PCS; principal; 2018-08-17)
PROC: 0BC48ZZ Extirpation of Matter from Right Upper Lobe Bronchus, Via Natural or Artificial Opening Endoscopic (ICD-10-PCS; principal; 2018-08-17)
PROC: 0BC58ZZ Extirpation of Matter from Right Middle Lobe Bronchus, Via Natural or Artificial Opening Endoscopic (ICD-10-PCS; principal; 2018-08-17)
PROC: 0BC98ZZ Extirpation of Matter from Lingula Bronchus, Via Natural or Artificial Opening Endoscopic (ICD-10-PCS; principal; 2018-08-17)
DX: J15.6 Pneumonia due to other Gram-negative bacteria (principal); J45.901 Unspecified asthma with (acute) exacerbation; T17.890A Other foreign object in other parts of respiratory tract causing asphyxiation, initial encounter; R00.1 Bradycardia, unspecified; E83.41 Hypermagnesemia; M79.2 Neuralgia and neuritis, unspecified; J20.9 Acute bronchitis, unspecified; E66.3 Overweight; I10 Essential (primary) hypertension; E78.5 Hyperlipidemia, unspecified; E03.9 Hypothyroidism, unspecified; F41.9 Anxiety disorder, unspecified; Z90.710 Acquired absence of both cervix and uterus; Z90.721 Acquired absence of ovaries, unilateral; Z90.79 Acquired absence of other genital organ(s); Z81.1 Family history of alcohol abuse and dependence; Z82.3 Family history of stroke; Z80.6 Family history of leukemia; Z88.0 Allergy status to penicillin; Z88.6 Allergy status to analgesic agent; Z91.018 Allergy to other foods; Z79.82 Long term (current) use of aspirin; Z79.899 Other long term (current) drug therapy; X58.XXXA Exposure to other specified factors, initial encounter; Y93.89 Activity, other specified; Y92.89 Other specified places as the place of occurrence of the external cause; Y99.8 Other external cause status

== ENCOUNTER → 2020-12-18 | Outpatient (CLI) | payer MEDICARE ==
[~2020-12-18] MED LIST changes: +ALBUTEROL2.5 MG/0.5 INH; +ASPIRIN ADULT L81 M1 PO; +COLACE100 MG PO; +LEVOTHYROXINE75 MCG PO; +METOPROLOL SUCC25 M2 PO; +OMEPRAZOLE40 MG PO; +TAMIFLU 75MG CA75 MG PO; +ZITHROMAX500 MG PO
== END | disposition home or self-care (01) ==
LOC: CARD 12-07 15:00
PROVIDERS: ATTEND Internal Medicine Cardiovascular Disease
DX: I08.0 Rheumatic disorders of both mitral and aortic valves (principal)

== ENCOUNTER → 2021-11-14 | Outpatient (CLI) | payer MEDICARE ==
[~2021-11-14] MED LIST changes: +AMLODIPINE BESYL5 MG PO; +CARBAMAZEPINE200 M2 PO; +CARBAMAZEPINE25 GM MC; +CRESTOR10 M1 PO; +DIOVAN40 MG PO; +FLOVENT HFA12 G1 INH; +HYDR25T PO; +LEVOFLOXACIN750 M2 PO
== END | disposition home or self-care (01) ==
LOC: RAD 11:13
PROVIDERS: ATTEND Nurse Practitioner Family
DX: J18.9 Pneumonia, unspecified organism (principal); M47.814 Spondylosis without myelopathy or radiculopathy, thoracic region

== ENCOUNTER → 2022-12-04 | Outpatient (CLI) | payer MEDICARE ==
[2022-12-04 11:11] LABS: URINE CREATININE RANDOM 42.52 mg/dL
[2022-12-04 11:29] LABS: ALKALINE PHOSPHATASE 79 U/L (46-116); BUN 11 mg/dl (9-23); CHLORIDE 98 mmol/L (98-107); CHOLESTEROL 182 mg/dL (<200); LDL CHOLESTEROL 92 mg/dL (9-159); POTASSIUM 4.7 mmol/L (3.4-5.1); SGPT/ALT 23 U/L (10-49); THYROID STIM HORMONE (HS) 2.711 uIU/ml (0.550-4.780); TOTAL PROTEIN 7.1 gm/dL (6.0-8.0); TRIGLYCERIDES 177 mg/dl (<150)
== END | disposition home or self-care (01) ==
LOC: LAB 10:33
PROVIDERS: ATTEND Nurse Practitioner Family
DX: E11.9 Type 2 diabetes mellitus without complications (principal); E78.2 Mixed hyperlipidemia; I10 Essential (primary) hypertension; E03.9 Hypothyroidism, unspecified; E55.9 Vitamin D deficiency, unspecified

== ENCOUNTER → 2023-09-01 | Outpatient (CLI) | payer MEDICARE | END | disposition home or self-care (01) | LOC: RESCLI 03:01 | PROVIDERS: ATTEND Internal Medicine | DX: E03.9 Hypothyroidism, unspecified (principal); I48.91 Unspecified atrial fibrillation; I10 Essential (primary) hypertension; E78.2 Mixed hyperlipidemia; E11.9 Type 2 diabetes mellitus without complications; K21.9 Gastro-esophageal reflux disease without esophagitis; E55.9 Vitamin D deficiency, unspecified; F41.9 Anxiety disorder, unspecified; J44.9 Chronic obstructive pulmonary disease, unspecified; J30.2 Other seasonal allergic rhinitis; E60 Dietary zinc deficiency; Z88.0 Allergy status to penicillin; Z88.8 Allergy status to other drugs, medicaments and biological substances; Z79.899 Other long term (current) drug therapy; Z79.01 Long term (current) use of anticoagulants; Z79.02 Long term (current) use of antithrombotics/antiplatelets; Z79.82 Long term (current) use of aspirin; Z79.84 Long term (current) use of oral hypoglycemic drugs; Z86.73 Personal history of transient ischemic attack (TIA), and cerebral infarction without residual deficits ==

== ENCOUNTER 2025-02-15 11:20 | Emergency (ER) | payer MEDICARE ==
[~2025-02-15] VITALS: Ht 160 cm; Wt 81.6 kg
[2025-02-15] MEDS ORDERED: ELIQUIS5 M1 PO (11:31)
[2025-02-15] MEDS ORDERED: METFORMIN HYDR500 MG PO (11:31)
[2025-02-15] MEDS ORDERED: GABAPENTIN600 MG PO (11:31)
[2025-02-15] MEDS ORDERED: MAGNESIUM OXID400 MG PO (11:32)
[2025-02-15] MEDS ORDERED: QVAR REDIHALE10.6 G1 INH (11:32)
== END 2025-02-15 12:21 | disposition home or self-care (01) ==
LOC: ED 11:20
DX: S90.31XA Contusion of right foot, initial encounter (principal); I10 Essential (primary) hypertension; E78.5 Hyperlipidemia, unspecified; I48.91 Unspecified atrial fibrillation; E07.9 Disorder of thyroid, unspecified; Z88.0 Allergy status to penicillin; Z88.5 Allergy status to narcotic agent; Z91.018 Allergy to other foods; Z79.899 Other long term (current) drug therapy; Z79.82 Long term (current) use of aspirin; Z79.84 Long term (current) use of oral hypoglycemic drugs; Z90.711 Acquired absence of uterus with remaining cervical stump; X58.XXXA Exposure to other specified factors, initial encounter; Y93.89 Activity, other specified; Y92.89 Other specified places as the place of occurrence of the external cause; Y99.8 Other external cause status

== ENCOUNTER → 2025-02-21 | Outpatient (CLI) | payer MEDICARE ==
[~2025-02-21] MED LIST changes: +ELIQUIS5 M1 PO; +GABAPENTIN600 MG PO; +MAGNESIUM OXID400 MG PO; +METFORMIN HYDR500 MG PO; +QVAR REDIHALE10.6 G1 INH
== END ==
LOC: US 12:00
PROVIDERS: ATTEND Nurse Practitioner Family
DX: T14.8XXA Other injury of unspecified body region, initial encounter (principal); R60.0 Localized edema; M79.671 Pain in right foot; R60.9 Edema, unspecified; X58.XXXA Exposure to other specified factors, initial encounter; Y93.89 Activity, other specified; Y92.89 Other specified places as the place of occurrence of the external cause; Y99.8 Other external cause status

== ENCOUNTER → 2025-02-24 | Outpatient (CLI) | payer MEDICARE | END | disposition home or self-care (01) | LOC: CT 00:08 | PROVIDERS: ATTEND Nurse Practitioner Family | DX: T14.8XXA Other injury of unspecified body region, initial encounter (principal); M19.071 Primary osteoarthritis, right ankle and foot; M25.471 Effusion, right ankle; M25.774 Osteophyte, right foot; R60.0 Localized edema; M79.671 Pain in right foot; X58.XXXA Exposure to other specified factors, initial encounter; Y93.89 Activity, other specified; Y92.89 Other specified places as the place of occurrence of the external cause; Y99.8 Other external cause status ==